=== PATIENT | male | born 1940 | race Caucasian/White ===

== ENCOUNTER 2025-01-05 10:41 | Day surgery (SDC) | payer MEDICARE, OTHER, SELFPAY ==
[2025-01-05 11:18] LABS: Hematocrit 39.3 % (39.0-52.0); Hemoglobin 13.3 g/dL (13.0-18.0); Mean Corp Hgb Conc. 33.8 g/dL (33.0-37.0); Mean Corpuscular Hgb 33.3 pg (27.0-31.0); Mean Corpuscular Volume 98.3 fL (80.0-94.0); Mean Platelet Volume 10.4 fL (7.4-10.4); Platelet Count 149 10^3/uL (130-400); White Blood Cell Count 4.5 10^3/uL (4.8-10.8)
[2025-01-05 11:25] LABS: Blood Urea Nitrogen 29 mg/dl (9-20); Calcium 9.7 mg/dl (8.4-10.2); Carbon Dioxide 28 mmol/L (22-30); Chloride 109 mmol/L (98-107); Glucose 105 mg/dl (70-99); Potassium 4.9 mmol/L (3.5-5.1); Sodium 141 mmol/L (135-145); eGFR 54.85
[2025-01-05 11:30] VITALS: BMI 23.1
[2025-01-05 11:52] VITALS: BP 192/71
--- NOTE | 2025-01-05 13:43 | ITS.CL.PACE ---
Call Center Support Consultant - Pacemaker Implant
Pacemaker Implant
Procedure Report:
Primary Care Doctor: Dr José Miguel Steen
Primary Ux Developer Designer: Dr Ashwin Yu
Procedure Date: 01/05/2025
Name of procedure:
1. Placement of a dual-chamber pacemaker with left bundle area pacing lead for conduction system pacing
2. Subclavian venography
History:
1. Patient is a pleasant 84-year-old male with a past medical history significant for valvular heart disease, renal insufficiency, hypertension, hyperlipidemia, TIA, sick sinus syndrome, symptomatic irreversible bradycardia. Patient had event
monitor which demonstrated frequent greater than 4-second pauses, symptomatic sinus bradycardia, junctional escape rhythm due to sick sinus syndrome and reported rare A-V dissociation.
2. Please refer to H&P for complete history.
Indication:
Sick sinus syndrome
Symptomatic irreversible bradycardia
Methods:
After informed consent was obtained, the patient was brought to the EP laboratory in a postabsorptive, nonsedated state. Peripheral IV access was established. Prophylactic antibiotics were administered prior to incision. Continuous ECG, blood
pressure, and pulse oximetry were initiated. Cardioversion patch electrodes were placed on the patient's chest and back. A grounding patch was applied to the skin. Sedation was administered by anesthesia services.
In order to define the extrathoracic portion of the subclavian vein and exclude significant venous obstruction or anomalous anatomy, subclavian venography was performed prior to the procedure. Using the patient's left peripheral IV, contrast was
injected and images were recorded. The left subclavian vein and SVC were found to be widely patent.
The left chest was prepared and draped in a sterile fashion. A time-out was performed. Local anesthesia was injected in the subcutaneous tissue in the infraclavicular area. An incision was made medial to the deltopectoral groove. The subcutaneous
tissue was dissected the level of the prepectoral fascia. A subcutaneous pocket was created. Under fluoroscopic guidance and with the assistance of the images from the venogram, 2 separate venipunctures were made using micropuncture and modified
Seldinger technique. These were performed in the extrathoracic portion of the subclavian vein. Guidewires were passed and two peel-away sheaths were placed, and used to advance leads into the circulation.
Fluoroscopy was used to determine likely anatomic site for left bundle branch pacing. The Medtronic C315 sheath was used to deliver the Medtronic 3830 Selectsecure pacing lead with the helix exposed just exposed from the sheath tip during continuous
monitoring when pacemapping the septum during gentle clockwise rotation to obtain a paced QRS morphology of a W pattern in lead V1. Once the suspected optimal site was identified, lead deployment was performed with several rapid rotations as paced
QRS morphology was intermittently monitored until a paced QRS complex in lead V1 demonstrated development of an R wave (qR or rSR). Unipolar pacing impedance dropped by approximately 100-200 ohms suggesting it had reached the left ventricular
subendocardial. Stable VEgm injury current is present throughout lead position and at end of case. Final unipolar pacing impedance is 1008 Ohms. Unipolar pacing threshold is stable at 1.0 V @ 0.4 ms. The patient had pre-existing narrow QRS. Final
conduction system paced QRS complex duration is 117 ms, LVAT is 74 ms, and peak V5 -> peak V1 timing is 46 ms. The C315 sheath was slit under fluoroscopy ensuring lead position and stability.
Next, the right atrial lead was positioned in the right atrial appendage. Adequate sensing and pacing parameters were found, and no diaphragmatic stimulation was seen with high-output pacing. Both sheaths were split, and the leads were secured to
the fascia with Ethibond ties.
The pocket was flushed with antibiotic solution and hemostasis was assured. The generator was connected to the leads and placed inside the pocket. The device was sutured to the fascia. Floseal was applied. The wound was closed with 3 running
layers of absorbable suture, and steri-strips were applied. Dressing applied over steri-strips in standard fashion.
Following the procedure, the patient was taken to the recovery area in stable condition. A chest x-ray to be obtained post procedure as routine.
Lead parameters and device programming:
- RA Lead (MedALTILIA, Model 5076, #[id number]): Sensing 1.1 mV, Pacing threshold 0.75 V at 0.4 ms, Imp 437 ohm
- RV Lead (Medtronic, Model 3830, #[id number]): Sensing 5.6 mV, Pacing threshold 0.5 V at 0.4 ms, Imp 741 ohm
- Device: Medtronic, Model W1 DR 01 pacemaker (# [id number]), programmed [id number], mode switch on, lower rate 60, upper tracking rate 130 ppm
Conclusions:
1. Successful placement of a dual-chamber pacemaker with conduction system pacing (LBBAP)
2. Subclavian venography
Recommendations:
- Admit
- Chest x-ray tonight, [facility] in AM.
- IV antibiotics while the patient is admitted.
- OK to resume home medications as indicated
- Pressure dressing to be removed in AM, aquacell to remain until wound check
- Follow-up will be arranged in the office in 7-10 days post-discharge for incision check
Erasto Vu DO, FACC, RS
Clinical Cardiac International Sales Representative
cc: Dr José Miguel Steen; Dr Ashwin Yu
[2025-01-05 16:49] VITALS: BP 175/81
[2025-01-05 17:00] VITALS: BP 178/82
--- NOTE | 2025-01-05 17:07 | PTCARENOTE ---
Rec'd report from Luiz in the EP lab; Rec'd pt from EP AAOX3 w/no c/o CP, SOB, or new device site pain. Pt w/new L chest wall PPM w/dressing C/D/I, w/no signs or symptoms of bleeding or hematoma. Pt's BP elevated on arrival, will advise Dr Moraes &
cont to monitor. Activity restrictions discussed w/pt & pt's spouse & plan of care for the night reviewed. Pt w/callbell within reach & plan of care ongoing.
[2025-01-05 17:30] VITALS: BP 110/94
[2025-01-05 19:03] VITALS: BP 148/63
[2025-01-05] MEDS: TYLENOL 650 MG PO (20:37)
[2025-01-05] MEDS: ANCEF 5 IV (20:37)
--- NOTE | 2025-01-05 22:00 | PTCARENOTE ---
Received pt at change of shift resting in bed. A-paced on the monitor, HR 60. Denies chest pain or SOB, but c/o discomfort at the surgical site. PRN Tylenol administered as ordered--see SEP. Pacemaker site with original post op dressing, C.D.I. and
left arm immobilizer on. Pt educated on activity and limb restrictions. Encouraged pt to call engineer technical staff before ambulating. Call fairchild within reach.
[2025-01-05] MEDS: LIPITOR 10 MG PO (22:13)
[2025-01-05] MEDS: COZAAR 50 MG PO (22:13)
[2025-01-05 22:14] VITALS: BP 134/61
[2025-01-06 04:12] VITALS: BP 160/73
[2025-01-06] MEDS: ANCEF 5 IV (04:21)
[2025-01-06] MEDS: TYLENOL 650 MG PO (04:27)
[2025-01-06 04:33] LABS: Hematocrit 36.9 % (39.0-52.0); Mean Corp Hgb Conc. 35.2 g/dL (33.0-37.0); Mean Corpuscular Hgb 34.2 pg (27.0-31.0); Mean Corpuscular Volume 97.1 fL (80.0-94.0); Mean Platelet Volume 10.1 fL (7.4-10.4); Platelet Count 127 10^3/uL (130-400); Red Cell Dist. Width 12.6 % (11.5-14.5); White Blood Cell Count 4.1 10^3/uL (4.8-10.8)
[2025-01-06 04:59] LABS: Blood Urea Nitrogen 25 mg/dl (9-20); Calcium 9.1 mg/dl (8.4-10.2); Carbon Dioxide 25 mmol/L (22-30); Chloride 112 mmol/L (98-107); Estimated Creatinine Clearance 52 ml/min; Glucose 88 mg/dl (70-99); Magnesium 2.1 mg/dl (1.6-2.3); Potassium 4.4 mmol/L (3.5-5.1); Sodium 140 mmol/L (135-145); eGFR > 60.00
[2025-01-06 07:37] VITALS: BP 154/70
[2025-01-06] MEDS: LOW STRENGTH ASPIRIN 81 MG PO (07:53)
[2025-01-06] MEDS: ORETIC 12.5 MG PO (07:53)
--- NOTE | 2025-01-06 08:20 | W.PN.CARDCBS ---
Addendum entered and electronically signed by Erasto Vu DO 01/06/25 09:16:
I saw and examined the patient.
The Raw Cheese Worker's note was reviewed and I agree with the note.
Comment:
Patient seen and examined's morning. No acute events overnight. Patient resting comfortably in bed without complaint. Patient noted mild discomfort overnight resolved with 2 Tylenol. Telemetry demonstrates a paced V sense and episodes of a paced
V pace. No lightheadedness, dizziness, near-syncope/syncope, chest pain, shortness of breath, or weakness.
GENERAL: no acute distress
EYE: sclera anicteric
NECK: Supple, no JVD, no carotid bruit appreciated
ENT: normal nose, moist mucosal membranes
CARDIAC: Regular rate and rhythm, +S1/S2, no murmur, rubs, or gallops; left-sided CIED site C/D/I, no swelling, warmth; mild discomfort/tender to palpation
CHEST/PULMONARY: Normal effort, clear breath sounds
ABDOMEN: Soft, without focal tenderness or distention
NEUROLOGICAL: Alert and oriented x3
SKIN: Warm and dry, no rash
PSYCH: Normal and appropriate interaction.
A/P as below
Patient doing very well status post dual-chamber pacemaker for sick sinus syndrome and symptomatic irreversible bradycardia.
Chest x-ray shows no pneumothorax
Device interrogation shows stable device function
Incision check scheduled for 1 week
Follow-up with primary care, primary recruiting coordinator (Dr Ashwin Yu) as scheduled
Original Note:
Today's Communication / Plan
-
post PPM, stable for d/c home
Impression / Plan
-
PCP: José Miguel Steen MD
CDY: Ashwin Bruce MD
84-year-old male with a past medical history significant for valvular heart disease, renal insufficiency, hypertension, hyperlipidemia, TIA, sick sinus syndrome, symptomatic irreversible bradycardia. Patient had event monitor which demonstrated
frequent greater than 4-second pauses, symptomatic sinus bradycardia, junctional escape rhythm due to sick sinus syndrome and reported rare A-V dissociation.
Impression:
Symptomatic bradycardia
SSS
post DC PPM with LBB pacing lead 01/05/25
HTN
HLD
TIA
Moderate MR
DJD
Renal insufficiency
Plan:
post device site stable
tele Apaced occ V pacing
CXR no PTX
Device interrogation good
HTN continue losartan, HCTZ
Activity restrictions reviewed
Incision check DCA 1 week
continue cardiac care with Dr. Bruce
Home todoay
Progress Note - Winder Tender
Subjective
Date of Service: January 06, 2025
denies cp, sob, mild inc pain
Objective
Labs:
01/06/25 04:18
01/06/25 04:18
Labs
Hgb 13.0 g/dL (13.0-18.0) 01/06/25 04:18
Hct 36.9 % (39.0-52.0) L 01/06/25 04:18
Plt Count 127 10^3/uL (130-400) L 01/06/25 04:18
Sodium 140 mmol/L (135-145) 01/06/25 04:18
Potassium 4.4 mmol/L (3.5-5.1) 01/06/25 04:18
BUN 25 mg/dl (9-20) H 01/06/25 04:18
Creatinine 1.1 mg/dL (0.7-1.3) 01/06/25 04:18
Glucose 88 mg/dl (70-99) 01/06/25 04:18
Vital Signs and I&O:
Vital Signs
Temp Pulse Resp BP Pulse Ox
97.5 F 60 18 154/70 98
01/06/25 07:35 01/06/25 07:37 01/06/25 07:35 01/06/25 07:37 01/06/25 07:57
Vital Signs
Temp Pulse Resp BP Pulse Ox
97.5 F 60 18 154/70 98
01/06/25 07:35 01/06/25 07:37 01/06/25 07:35 01/06/25 07:37 01/06/25 07:57
Intake & Output
01/04/25 01/05/25 01/06/25 01/07/25
06:59 06:59 06:59 06:59
Intake Total 360 / 360
Balance 360 / 360
Physical Exam
Physical Exam
NAD, AOX3
S1, S2, RRR
CTAB, non labored. no wheeze
SNTND bsx4
L CW dressing c/d/i no HT
--- NOTE | 2025-01-06 10:12 | W.DS.TRANS ---
DC Summary - Cable Maker
-
Discharge Instructions:
Discharge Diagnosis/Procedures Pacemaker implant
Diet Low Cholesterol
Driving Restrictions No driving for 1 week
Instructions:
Stand-Alone Forms: DC Inst - Implanted Device
Changes to Home Medications: No
Discharge Medications:
DC Medications w/original date entered in [facility]
aspirin 81 mg chewable tablet 81 mg PO DAILY 01/05/25
atorvastatin 10 mg tablet 10 mg PO HS 01/05/25
hydrochlorothiazide 12.5 mg tablet 12.5 mg PO DAILY 01/05/25
losartan 50 mg tablet 50 mg PO HS 01/05/25
Home Medication Changes
Pending Results: No
[2025-01-06 11:04] VITALS: BP 166/74
--- NOTE | 2025-01-06 11:37 | PTCARENOTE ---
Pt up independently, he denies more than 1/10 incisional pain. Pt seen by and Luz Marina Torre, YA. Telemetry and IV devices removed. Discharge instructions reviewed with pt and his SO regarding activity and driving restrictions, wound care,
medications and their possible side effects, reproting cares and concerns and follow up appt's. Very good understanding verbalized. Pt escorted out via wheelchair and pt discharged to home.
== END 2025-01-06 11:21 | disposition home or self-care (01) ==
LOC: CATH 10:41
PROVIDERS: Nurse Practitioner; ATTENDING PHYSICIAN Internal Medicine Cardiovascular Disease; FAMILY PHYSICIAN Internal Medicine; OTHER PHYSICIAN Internal Medicine Cardiovascular Disease
DX: I49.5 Sick sinus syndrome (principal); I11.9 Hypertensive heart disease without heart failure; Z86.73 Personal history of transient ischemic attack (TIA), and cerebral infarction without residual deficits; E78.5 Hyperlipidemia, unspecified; N28.9 Disorder of kidney and ureter, unspecified
CPT/HCPCS: 33208; 71045; 80048; 83735; 85027; 93005; C1769; C1785; C1887; C1892; C1898